=== PATIENT | female | born 1955 | race Two or more races ===

== ENCOUNTER 2025-06-07 13:32 | Emergency (ER) | payer MEDICAID, SELFPAY ==
[2025-06-07 13:34] VITALS: BMI 25.5
[2025-06-07 13:44] VITALS: BP 131/72; PULSE 84; RESP 18; TEMP 37.2; O2SAT 98
--- NOTE | 2025-06-07 14:22 | PD.EDEXREM ---
ED Extremity Problem RME/HPI General Chief complaint: Extremity Problem,Nontraumatic Stated complaint: LEFT LEG PAIN X3 DAYS, HISTORY OF SPINAL STENOSIS Time Seen by Provider: 06/07/25 14:03 Arrival date/time: 06/07/25 13:32 70-year-old female with history of spinal stenosis presents to the emergency department today stating she has got lower back pain patient reports that she lives in [place] but currently visiting the area patient reports that she has a flareup of her chronic pain patient reports that she is due to have surgery on her lower back. Patient reports no saddle anesthesia no loss of bowel or bladder and patient walks with steady gait Limitations: no limitations Related Data Previous Rx's ?Medication ?Instructions ?Recorded cyclobenzaprine 10 mg tablet 10 mg PO TID PRN muscle spasm 10 06/07/25 days #30 tab-caps Allergies Allergy/AdvReac Type Severity Reaction Status Date / Time No Known Allergies Allergy Verified 06/07/25 13:34 Review of Systems Review of Systems Systems Reviewed: All systems reviewed, normal except as documented Constitutional Constitutional: Reports system reviewed and no additional complaints, except as documented, Denies fever(s) and Denies headache(s) Eyes Eyes: Reports system reviewed and no additional complaints, except as documented and Denies blurry vision ENT Ears, Nose, Mouth, and Throat: Reports system reviewed and no additional complaints, except as documented, Denies headache(s), Denies nasal congestion and Denies nasal discharge Cardiovascular Cardiovascular: Reports system reviewed and no additional complaints, except as documented, Denies chest pain and Denies dyspnea Respiratory Respiratory: Reports system reviewed and no additional complaints, except as documented, Denies chest congestion, Denies cough and Denies dyspnea Gastrointestinal Gastrointestinal: Reports system reviewed and no additional complaints, except as documented and Denies abdominal pain Musculoskeletal Musculoskeletal: Reports system reviewed and no additional complaints, except as documented, Reports back pain, Denies deformity, Denies joint swelling, Denies numbness, Reports stiffness and Denies tingling Integumentary/Breasts Skin/Breast: Reports system reviewed and no additional complaints, except as documented and Denies rash Neurologic Neurologic: Reports system reviewed and no additional complaints, except as documented, Reports as per HPI, Denies headache(s), Denies numbness and Denies tingling Past Medical History Social History SMOKING STATUS: Never smoker ED Exam General Limitations: Present no limitations General appearance: Present alert and in no apparent distress Head Head exam: Present atraumatic, normocephalic and normal inspection Eye Eye exam: Present normal appearance, PERRL and EOMI; Absent conjunctival injection ENT ENT exam: Present normal exam, normal oropharynx and mucous membranes moist Neck Neck exam: Present normal inspection, full ROM and trachea midline Chest Chest inspection: Present normal inspection and symmetric chest wall rise Respiratory Respiratory exam: Present normal lung sounds bilaterally Cardiovascular Cardiovascular exam: Present regular rate, normal rhythm and normal heart sounds Abdominal Exam Abdominal exam: Present soft and normal bowel sounds; Absent distention, tenderness, guarding, rebound or rigidity Extremities Exam Extremities exam: Present normal inspection and full ROM Back Exam Back exam: Present normal inspection and full ROM Neurological Exam Neurological exam: Present alert, oriented X3, CN II-XII intact, normal gait and reflexes normal; Absent motor sensory deficit Psychiatric Psychiatric exam: Present normal affect and normal mood Skin Skin exam: Present warm, dry, intact and normal color; Absent rash Course Quality Measures none Orders Category Date Time Status Ketorolac Inj [Toradol Inj] Med 06/07/25 14:03 Discontinued 30 mg IM X1 ONE Vital Signs Vital signs: Vital Signs Temperature 98.9 F 06/07/25 13:44 Pulse Rate 84 06/07/25 13:44 Respiratory Rate 18 06/07/25 13:44 Blood Pressure 131/72 H 06/07/25 13:44 Pulse Oximetry (%) 98 06/07/25 13:44 Oxygen Delivery Method Room Air 06/07/25 13:44 O2 saturation 98% room air with normal limits Extremity Problem MDM Narrative MDM Narrative:: 70-year-old female with history of spinal stenosis presents to the emergency department today stating she has got lower back pain patient reports that she lives in [place] but currently visiting the area patient reports that she has a flareup of her chronic pain patient reports that she is due to have surgery on her lower back. Patient reports no saddle anesthesia no loss of bowel or bladder and patient walks with steady gait On exam patient well-appearing patient does not appear ill or toxic no acute distress Based on symptomatology this is acute flareup of her chronic pain patient given Toradol for pain discharge home with Flexeril Patient instructed to follow with primary care doctor next 24 to 48 hours for worsening symptoms return immediately Patient data External records reviewed:: [facility] previous records Clinical information provided by:: patient Social determinants that could affect healthcare access:: none Patient has the following chronic illnesses:: None How is presenting disease/condition affected by chronic disease/condition?: no chronic disease Evaluation data The following diagnostics were reviewed and interpreted by me:: radiology exam(s) Lab and/or radiology exams considered but not ordered:: Radiology obtain Interpretation Summary: Reviewed by me Medications / Prescriptions Medications or Prescriptions considered but not ordered:: Given Medication administrations:: Medication Administration History Discontinued Medications Ketorolac Tromethamine (Ketorolac Inj 30 Mg/Ml Vial) 30 mg IM X1 ONE Stop: 06/07/25 14:04 Last Admin: 06/07/25 14:42 Dose: 30 mg Documented By: Given Consultations Consultation(s) initiated? (list below): No Diagnosis Extremity Problem Differential Diagnosis: other (Back pain) Most likely diagnosis given after review of the tests above:: Back pain Admission Indicated Admission indicated?: not indicated Admission Request Was there a request for admission?: No Disposition Plan Disposition Plan: Discharge Discharge Attestation Discharge Attestation: The patient and all family members were given an opportunity to ask questions and understood the discharge instructions. Discharge instructions specifically effects, indications for sooner follow up or return to the emergency department, and the expected course of current diagnosis. Patient condition: Stable Discharge Plan Plan Patient Disposition: HOME (Self Care) Discharge Disposition comment: Stable Prescriptions/Referrals Prescriptions/Med Rec: New cyclobenzaprine 10 mg tablet 10 mg PO TID PRN (Reason: muscle spasm) 10 Days Qty: 30 0RF Problem List Clinical Impression: Lumbar radiculopathy, Spinal stenosis Patient/Caregiver Discharge Instructions Education Materials: Back Safety: Lifting Additional Instructions: Please follow up with your primary care doctor in the next 24-48hrs for any worsening symptoms return here immediately Print Language: [employer]ight Stand Alone Forms: Josefa Award Info., Patient Portal Info Letter PA/FUEL TECHNICIAN Supervising Physician PA/RADHA Supervising Physician: Dr lindo
[2025-06-07] MEDS: KETOROLAC INJ 30 MG/ML VIAL IM (14:42)
== END 2025-06-07 15:36 | disposition home or self-care (01) ==
LOC: SERX 14:20
PROVIDERS: Emergency Provider Emergency Medicine
DX: M54.16 Radiculopathy, lumbar region (principal); M48.061 Spinal stenosis, lumbar region without neurogenic claudication
CPT/HCPCS: 96372; 99283; J1885